=== PATIENT | male | born 1995 | race Caucasian/White ===

== ENCOUNTER 2018-11-17 19:55 | Emergency (ER) | payer SELFPAY ==
[2018-11-18] MEDS ORDERED: TR1B60 TOP (08:12)
[2018-11-18] MEDS ORDERED: TRIA15OI9 TOP (08:12)
[2018-11-18] MEDS ORDERED: PRED20TA PO (08:12)
== END 2018-11-17 21:36 | disposition left against medical advice (07) ==
LOC: E/R 19:55
DX: Z53.21 Procedure and treatment not carried out due to patient leaving prior to being seen by health care provider (principal)

== ENCOUNTER 2018-11-18 07:28 | Emergency (ER) | payer BC ==
[~2018-11-18] VITALS: Ht 185.4 cm; Wt 108.5 kg
[2018-11-18 07:37] VITALS: BP 162/96; PULSE 104; RESP 20; Ht 185.4 cm; Wt 108.5 kg
[2018-11-18] MEDS ORDERED: TRIA15OI9 TOP (08:12)
[2018-11-18] MEDS ORDERED: PRED20TA PO (08:12)
[2018-11-18] MEDS ORDERED: TR1B60 TOP (08:12)
--- NOTE | 2018-11-18 08:15 | ERD ---
ER Documentation Chief Complaint Chief Complaint Complains of a rash x3 days HPI 23-year-old male otherwise healthy presents with rash to his chest wall and upper back that he has had for 3 days. [facility] States it does not really itch but feels more like a bruise. No fever. No rece nt illness. Tried putting an unknown cream on there but did not help. ROS All systems reviewed and are negative except as per history of present illness. Medications Home Meds Active Scripts Triamcinolone Acetonide (Triamcinolone Acetonide) 0.1% - 60 Ml Lotion, 1 APPLIC TOP BID, #1 BOTTLE Prov:RAHEEM TABOR PA-C 11/18/18 Triamcinolone Acetonide (Triamcinolone Acetonide) 0.5% - 15 Gm Oint..gm., 1 APPLIC TOP BID, #1 TUB Prov:RAHEEM TABOR PA-C 11/18/18 Prednisone* (Prednisone*) 20 Mg Tab, 60 MG PO DAILY for 5 Days, TAB Prov:RAHEEM TABOR PA-C 11/18/18 Allergies Allergies: Coded Allergies: No Known Allergy (Unverified , 11/18/18) FmHx Family History: No diabetes Physical Exam Vitals Vital Signs Date Temp Pulse Resp B/P (MAP) Pulse Ox O2 O2 Flow FiO2 Time Delivery Rate 11/18/18 98.0 104 20 162/96 98 07:37 (118) Physical Exam Const: No acute distress Head: Atraumatic Eyes: Normal Conjunctiva ENT: Normal External Ears, Nose and Mouth. Neck: Full range of motion. No meningismus. Resp: Clear to auscultation bilaterally Cardio: Regular rate and rhythm, no murmurs Skin: Hive-like rash on chest wall, mild erythematous macular rash on posterior upper shoulders bilaterally Procedures/MDM Patient presents with an allergic type rash. Prescription for short course of prednisone given as well as triamcinolone. Patient counseled regarding my diagnostic impression and care plan. Prior to discharge all questions answered. Pt agrees with treatment plan and understands strict return precautions. Pt is instructed to follow up with primary care provider within 24-48 hours. Precautionary instructions provided including instructions to return to the ER if not improving or for any worsening or changing symptoms or concerns. Departure Diagnosis: Primary Impression: Rash Condition: Stable Patient Instructions: Self-Care for Skin Rashes Additional Instructions: Call your primary care doctor TOMORROW for an appointment during the next 1-2 days.See the doctor sooner or return here if your condition worsens before your appointment time. RAHEEM TABOR PA-C November 18, 2018 08:15
== END 2018-11-18 08:40 | disposition home or self-care (01) ==
LOC: FTE 07:28
DX: R21 Rash and other nonspecific skin eruption (principal)
CPT/HCPCS: 99283